=== PATIENT | male | born 2000 | race Caucasian/White ===

== ENCOUNTER 2021-10-25 06:11 | Emergency (ER) | payer OTHER ==
[2021-10-25 06:26] VITALS: BP 134/84; PULSE 110; RESP 18; TEMP 98.5; BMI 44.7
== END 2021-10-25 06:51 | disposition home or self-care (01) ==
LOC: FER 06:11
DX: S50.312A Abrasion of left elbow, initial encounter (principal); V00.141A Fall from scooter (nonmotorized), initial encounter
CPT/HCPCS: 99282-25